=== PATIENT | female | born 1995 | race Caucasian/White ===

== ENCOUNTER 2021-06-07 09:27 | Emergency (ER) | payer BC ==
[2021-06-07] MEDS ORDERED: TORAdol 30 mg Injection IM ONE (09:53)
[2021-06-07] MEDS ORDERED: TORAdol 30 mg Injection ONE (09:54)
--- NOTE | 2021-06-07 10:11 | ERPHSYRPT ---
- History of Present Illness Historian: patient, other (Mother) Exam Limitations: no limitations Patient Subjective Stated Complaint: Patient c/o lower left sided back pain that radiates into left flank to left lower quad. Rates as 8/10. States ambulating has made the pain the worst so far. Triage Nursing Assessment: A & O x 3. Able to voice wants needs. Skin clammy. Writhing in pain. Clutching at left side. Rocking back and forth. Physician History: 25 yo wf w L flank pain radiating to LLQ since 8AM. Pt is 9/10 and sharp. It is accompanied by N/V, and she has mild dysuria wo hematuria/frequency/fever. is denied. Timing/Duration: other (8:00AM) Activities at Onset: sleep Quality: sharpness, stabbing Abdominal Pain Onset Location: flank Pain Radiation: LLQ Severity of Pain-Max: severe Severity of Pain-Current: severe Modifying Factors: Worsens With: analgesics, antacids, breathing, coughing, defecating, eating, exercise, lying down, movement, palpation, rest, urinating, vomiting, position, walking Associated Symptoms: back, nausea, vomiting Previous symptoms: no prior history Allergies/Adverse Reactions: NKA Allergy (Verified 06/07/21 10:08) Home Medications: Atorvastatin Calcium [Lipitor 40Mg] 40 mg PO DAILY 06/07/21 [History] Ethynodiol D-Ethinyl Estradiol [Kelnor 1-50 Tablet] 1 tab PO DAILY 06/07/21 [His tory] Labetalol HCl 100 mg [Trandate 100 MG] 100 mg PO BID 06/07/21 [History] Immunizations Up to Date: Yes Travel Risk - International Travel Have you traveled outside of the country in past 3 weeks: No - Coronavirus Screening Are you exhibiting any of the following symptoms?: No - Vaccine Status Have you recieved a Covid-19 vaccination: No - Review of Systems Constitutional: No Symptoms Eyes: No Symptoms Ears, Nose, & Throat: No Symptoms Respiratory: No Symptoms Cardiac: No Symptoms Abdominal/Gastrointestinal: No Symptoms, Nausea, Vomiting Genitourinary Symptoms: No Symptoms, Dysuria Musculoskeletal: No Symptoms Skin: No Symptoms Neurological: No Symptoms Psychological: No Symptoms Endocrine: No Symptoms Hematologic/Lymphatic: No Symptoms Immunological/Allergic: No Symptoms - Past Medical History Pertinent Past Medical History: Yes Neurological History: No Pertinent History ENT History: No Pertinent History Cardiac History: High Cholesterol, Hypertension Respiratory History: No Pertinent History Endocrine Medical History: No Pertinent History Musculoskeletal History: No Pertinent History GI Medical History: No Pertinent History History: No Pertinent History Psycho-Social History: No Pertinent History Female Reproductive Disorders: No Pertinent History - Past Surgical History Past Surgical History: No - Social History Smoking Status: Never smoker Exposure to second hand smoke: No Drug Use: none Significant Family History: no pertinent family hx - Female History Hx Last Menstrual Period: 05/10/21 Hx Now: No - Nursing Vital Signs Nursing Vital Signs: Initial Vital Signs Temperature 98.6 F 06/07/21 10:11 Pulse Rate 94 H 06/07/21 10:11 Respiratory Rate 16 06/07/21 10:11 Blood Pressure 148/79 06/07/21 10:11 O2 Sat by Pulse Oximetry 98 06/07/21 10:11 Pain Scale Pain Intensity 7 Hypertensive - Physical Exam General Appearance: no apparent distress (In pain) Eye Exam: PERRL/EOMI, eyes nml inspection Ears, Nose, Throat Exam: normal ENT inspection, TMs normal, pharynx normal, moist mucous membranes Neck Exam: normal inspection, non-tender, supple, full range of motion, No meningismus, No mass, No Brudzinski, No Kernig's Respiratory Exam: normal breath sounds, lungs clear, airway intact Cardiovascular Exam: regular rate/rhythm, normal heart sounds, normal peripheral pulses, capillary refill <2 sec, No murmur Gastrointestinal/Abdomen Exam: soft, tenderness (Mild RLQ wo guarding or rebo und) Back Exam: CVA tenderness (Mild L) Extremity Exam: normal inspection, normal range of motion Neurologic Exam: alert, oriented x 3, cooperative, 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, normal mood/affect, nml cerebellar function, nml station & gait, sensation nml, No motor deficits, No sensory deficit Skin Exam: normal color, warm, dry, No rash Lymphatic Exam: No adenopathy - Course Nursing assessment & vital signs reviewed: Yes - CT Exams Abdomen/Pelvis CT Interpretation: Discussed w/radiologist (2-3mm L distal ureteral stone) Ordered Tests: Active Orders 24 hr Category Date Time Status ABDOMEN AND PELVIS W/0 CONTRAS [CT] Stat Exams 06/07/21 11:20 Completed HCG,QUALITATIVE URINE Stat Lab 06/07/21 09:46 Completed UA W/RFX CULTURE Stat Lab 06/07/21 Completed Medication Summary Discontinued Medications Generic Name Dose Route Start Last Admin Trade Name Nette PRN Reason Stop Dose Admin Hydrocodone Bitart/Acetaminophen 1 tablet 06/07/21 11:24 06/07/21 11:28 Hydrocodone/Acetamin 10-325 Mg Tablet PO 06/07/21 11:25 Not Given STAT ONE Hydrocodone Bitart/Acetaminophen 1 tablet 06/07/21 12:10 06/07/21 12:14 Hydrocodone/Acetamin 10-325 Mg Tablet PO 06/07/21 12:11 1 tablet STAT ONE Administration Ketorolac Tromethamine 60 mg 06/07/21 09:53 06/07/21 09:56 Ketorolac Tromethamine 30 Mg/Ml Inj IM 06/07/21 09:54 60 mg STAT ONE Administration Ketorolac Tromethamine Confirm 06/07/21 09:54 Ketorolac Tromethamine 30 Mg/Ml Inj Administered 06/07/21 09:55 Dose 60 mg .ROUTE .STK-MED ONE Lab/Rad Data: Laboratory Results 06/07/21 06/07/21 Range/Units Unknown 09:46 Urinalys Dipstick Clnc MAIN LAB Urine Color YELLOW (YELLOW) Urine Appearance CLEAR (CLEAR) Urine pH 6.0 (5-6) Ur Specific [place] 1.024 (1.005-1.025) POC Urine Protein Conf NEGATIVE (Negative) Urine Ketones NEGATIVE (NEGATIVE) Urine Nitrite NEGATIVE (NEGATIVE) Urine Bilirubin NEGATIVE (NEGATIVE) Urine Urobilinogen 0.2 (0-1) mg/dL Urine Leukocytes SMALL (NEGATIVE) Urine WBC (Auto) 3-5 (0-5) /HPF Urine RBC (Auto) 0-2 (0-2) /HPF U Epithel Cells (Auto) RARE (FEW) /HPF Urine Bacteria (Auto) FEW (NEGATIVE) /HPF Urine RBC TRACE-INTACT (0-5) Meek/ul Urine Mucus (Auto) SLIGHT (NEGATIVE) /HPF Ur Culture Indicated? NO Urine Glucose NEGATIVE (NEGATIVE) mg/dL Urine HCG, Qual NEGATIVE (Negative) - Progress Progress: improved Progress Note: 06/07/21 12:06 60mg IM Toradol w improvement 06/07/21 17:32 Norco10 po x1 before discharge Counseled pt/family regarding: lab results, diagnosis, need for follow-up, rad results - Departure Departure Disposition: Home Clinical Impression: Ureterolithiasis Condition: Stable Critical Care Time: No Referrals: BRITTA VELAZQUEZ DO [Primary Care Provider] - Follow up/PCP as directed Instructions: Kidney Stones (DC) Additional Instructions: Strain all urine Pain meds as needed Fluids Start Macrobid Return to ER for increasing pain or temperature greater than 100.5 Follow up with your family Prescriptions: Hydrocodone/Acetaminophen [Hydrocodone-Acetamin 5-325 mg] 1 tab PO Q4HPRN PRN #7 tablet MDD 4 PRN Reason: Pain Nitrofurantoin Monohyd/M-Cryst [Macrobid 100 mg Capsule] 100 mg PO BID #10
[2021-06-07 10:40] LABS: Appearance CLEAR (CLEAR); Bilirubin NEGATIVE (NEGATIVE); Glucose NEGATIVE (NEGATIVE); Ketones NEGATIVE (NEGATIVE); Specific Gravity 1.024 (1.005-1.025)
[2021-06-07 10:41] LABS: Dipstick done @ ? MAIN LAB; Nitrite NEGATIVE (NEGATIVE); Protein,Urine Dip NEGATIVE (Negative); RBC TRACE-INTACT Ery/ul (0-5); Urobilinogen 0.2 mg/dL (0-1)
[2021-06-07 10:44] LABS: Bacteria FEW /HPF (NEGATIVE); Epithelial Cells RARE /HPF (FEW); Mucus SLIGHT /HPF (NEGATIVE); RBC 0-2 /HPF (0-2)
[2021-06-07 11:15] LABS: Urine Cultured Indicated? NO
[2021-06-07] MEDS ORDERED: HYDROCODONE-ACETAMIN 10-325 MG PO ONE ×2 (11:24→12:10)
--- NOTE | 2021-06-07 11:47 | XRAY ---
Indication: Left flank pain. Multiple contiguous axial images obtained through the abdomen and pelvis without contrast using renal stone protocol. Comparison: None Lung bases clear. Heart not enlarged. 2-3 mm distal left ureter calculus just proximal to UVJ. Proximal left ureter is slightly prominent along with mild hydronephrosis consistent with partial obstructive uropathy. No free fluid/air. Noncontrasted stomach and bowel loops appear nonobstructed with normal appendix. Remaining liver, gallbladder, pancreas, spleen, adrenal glands, kidneys, ureters, bladder, uterus, and aorta are unremarkable for noncontrast exam. Osseous structures intact. No ventral or inguinal hernias. Impression: 2-3 mm distal left ureteral calculus producing partial obstruction.
[2021-06-07 12:19] VITALS: BP 130/83; PULSE 68; O2SAT 97
== END 2021-06-07 12:25 | disposition home or self-care (01) ==
LOC: ED 09:27
DX: N20.1 Calculus of ureter (principal); R10.32 Left lower quadrant pain; R11.2 Nausea with vomiting, unspecified; R30.0 Dysuria; E78.5 Hyperlipidemia, unspecified; I10 Essential (primary) hypertension; Z79.891 Long term (current) use of opiate analgesic; Z79.899 Other long term (current) drug therapy
CPT/HCPCS: 74176; 81015; 84703; 96372; 99284; J1885; A9270-GY

== ENCOUNTER 2021-06-08 12:02 | Emergency (ER) | payer BC ==
[2021-06-08] MEDS ORDERED: TORAdol 30 mg Injection IV ONE ×2 (12:12→14:06)
[2021-06-08] MEDS ORDERED: Zofran 4 MG/2 ML VIAL IV ONE (12:13)
[2021-06-08] MEDS ORDERED: Sodium Chloride 0.9% 1000 ML 1,000 ML IV STA (12:15)
[2021-06-08] MEDS ORDERED: Zofran 4 MG/2 ML VIAL ONE (12:22)
[2021-06-08] MEDS ORDERED: TORAdol 30 mg Injection ONE ×2 (12:22→14:09)
[2021-06-08] MEDS ORDERED: Sodium Chloride 0.9% 1000 ML 1,000 ML ONE (12:22)
[2021-06-08 12:38] LABS: Absolute Neutrophil Ct (ANC) 9.07 (1.4-6.9); Basophil (Absolute #) 0.03 (0-0.4); Eosinophil % 0.2 % (0.00-5.0); Eosinophil (Absolute #) 0.02 (0-0.5); Hematocrit 40.6 % (35-47); Hemoglobin 13.9 gm/dl (12.0-16.0); Lymphocyte (Absolute #) 1.64 (1.0-4.6); Lymphocytes % 13.6 % (24.0-44.0); Mean Cell Volume 90.2 fl (78-100); Mean Corpuscular Hemoglobin 30.9 pg (26-32); Mean Corpuscular Hgb Concent. 34.2 g/dl (32-36); Mean Platelet Volume 8.9 fl (7.5-11.0); Monocyte (Absolute #) 1.26 (0.0-1.3); Monocytes % 10.5 % (0.0-12.0); Neutrophil % 75.5 % (36.0-66.0); Platelet Count 379 K/mm3 (150-450); Red Cell Distribution Width 12.8 % (11.5-14.0)
[2021-06-08 12:41] LABS: ALBUMIN 4.4 g/dL (3.5-5.0); ALKALINE PHOSPHATASE 61 U/L (38-126); ANION GAP 13.3 MEQ/L (5-15); BLOOD UREA NITROGEN 14 mg/dL (7-17); CHLORIDE 102 mmol/L (98-107); Calcium 9.1 mg/dL (8.4-10.2); Carbon Dioxide 23 mmol/L (22-30); Creatinine 1 0.93 mg/dL (0.52-1.04); EST GLOMERULAR FILTRATION RATE > 60.0 ML/MIN; Glucose 100 mg/dL (74-106); Potassium 3.9 mmol/L (3.5-5.1); SGOT/AST 34 U/L (14-36); SGPT/ALT 16 U/L (0-35); SODIUM 134 mmol/L (137-145); Total Protein 7.4 g/dL (6.3-8.2)
--- NOTE | 2021-06-08 13:23 | ERPHSYRPT ---
- History of Present Illness Time Seen by Provider: 06/08/21 12:15 Source: patient Exam Limitations: no limitations Patient Subjective Stated Complaint: pt here for return visit for flank pain and nausea and vomiting, she was dx with kidney stone and sent home on meds Triage Nursing Assessment: pt alert, resp easy, skin w/d/p. abd soft Physician History: Patient is a 25-year-old female who was seen in the ER yesterday with left flank pain had a CT scan which did show a distal left ureteral stone. She has been unable to retain any medicines. She had some Zofran called in but was having so much trouble she came had to the ER. Timing/Duration: day(s) (2) Activites at Onset: none Quality: stabbing, throbbing Onset Location: left flank Pain Radiation: LLQ, suprapubic, vaginal Severity of Pain-Max: severe Severity of Pain-Current: severe Sexual intercourse history: non-contributory Modifying Factors: Improves With: nothing Associated Symptoms: abdominal pain, nausea, vomiting Allergies/Adverse Reactions: NKA Allergy (Verified 06/08/21 12:07) Home Medications: Atorvastatin Calcium [Lipitor 40Mg] 40 mg PO DAILY 06/07/21 [History] Ethynodiol D-Ethinyl Estradiol [Kelnor 1-50 Tablet] 1 tab PO DAILY 06/07/21 [History] Labetalol HCl 100 mg [Trandate 100 MG] 100 mg PO BID 06/07/21 [History] Hx Tetanus, Diphtheria Vaccination/Date Given: No Hx Influenza Vaccination/Date Given: No Hx Pneumococcal Vaccination/Date Given: No Travel Risk - International Travel Have you traveled outside of the country in past 3 weeks: No - Coronavirus Screening Are you exhibiting any of the following symptoms?: No - Vaccine Status Have you recieved a Covid-19 vaccination: No - Review of Systems Constitutional: No Fever, No Chills Eyes: No Symptoms Ears, Nose, & Throat: No Symptoms Respiratory: No Cough, No Dyspnea Cardiac: No Chest Pain, No Edema, No Syncope Abdominal/Gastrointestinal: No Abdominal Pain, No Nausea, No Vomiting, No Diarrhea Genitourinary Symptoms: Flank Pain, No Dysuria Musculoskeletal: No Back Pain, No Neck Pain Skin: No Rash Neurological: No Dizziness, No Focal Weakness, No Sensory Changes Psychological: No Symptoms Endocrine: No Symptoms All Other Systems: Reviewed and Negative - Past Medical History Pertinent Past Medical History: Yes Neurological History: No Pertinent History ENT History: No Pertinent History Cardiac History: High Cholesterol, Hypertension Respiratory History: No Pertinent History Endocrine Medical History: No Pertinent History Musculoskeletal History: No Pertinent History GI Medical History: No Pertinent History History: No Pertinent History Psycho-Social History: No Pertinent History Female Reproductive Disorders: No Pertinent History - Past Surgical History Past Surgical History: No - Social History Smoking Status: Never smoker Exposure to second hand smoke: No Drug Use: none Patient Lives Alone: No Significant Family History: no pertinent family hx - Female History Hx Last Menstrual Period: 2 weeks ago Hx Now: No - Nursing Vital Signs Nursing Vital Signs: Initial Vital Signs Temperature 97.2 F 06/08/21 12:07 Pulse Rate 91 H 06/08/21 12:07 Respiratory Rate 18 06/08/21 12:07 Blood Pressure 132/77 06/08/21 12:07 O2 Sat by Pulse Oximetry 96 06/08/21 12:07 Pain Scale Pain Intensity 4 - Physical Exam General Appearance: moderate distress, alert Eye Exam: PERRL/EOMI, eyes nml inspection Ears, Nose, Throat Exam: normal ENT inspection, TMs normal, pharynx normal, moist mucous membranes Neck Exam: normal inspection, non-tender, supple, full range of motion Respiratory Exam: normal breath sounds, lungs clear, No respiratory distress Cardiovascular Exam: regular rate/rhythm, normal heart sounds, normal peripheral pulses Gastrointestinal/Abdomen Exam: soft, No tenderness, No mass Back Exam: normal inspection, normal range of motion, CVA tenderness, No vertebral tenderness Extremity Exam: normal inspection, normal range of motion, pelvis stable Neurologic Exam: alert, oriented x 3, cooperative, 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, normal mood/affect, sensation nml, No motor deficits Skin Exam: normal color, warm, dry Lymphatic Exam: No adenopathy SpO2: 96 - Course Nursing assessment & vital signs reviewed: Yes - Radiology Exams Abdomen X-ray Interpretation: Interpreted by me, Other (KUB shows small ureteral calculus in the distal left ureter near if not at the UPJ) Ordered Tests: Active Orders 24 hr Category Date Time Status KUB Stat Exams 06/08/21 12:14 Taken CBC W DIFF Stat Lab 06/08/21 12:29 Completed CMP Stat Lab 06/08/21 12:29 Completed CULTURE,URINE Stat Lab 06/08/21 12:15 Received UA W/RFX CULTURE Stat Lab 06/08/21 12:15 Completed Medication Summary Discontinued Medications Generic Name Dose Route Start Last Admin Trade Name Nette PRN Reason Stop Dose Admin Hydromorphone HCl 0.5 mg 06/08/21 14:07 06/08/21 14:15 Hydromorphone 1 Mg/1ml Inj 1 Mg/Ml Syringe IV 06/08/21 14:08 Not Given STAT ONE Hydromorphone HCl Confirm 06/08/21 14:10 Hydromorphone 1 Mg/1ml Inj 1 Mg/Ml Syringe Administered 06/08/21 14:11 Dose 1 mg .ROUTE .STK-MED ONE Sodium Chloride 1,000 mls @ 999 mls/hr 06/08/21 12:15 06/08/21 13:26 Sodium Chloride 0.9% 1000 Ml IV 06/08/21 13:15 Infused .Q1H1M STA Infusion Sodium Chloride Confirm 06/08/21 12:22 Sodium Chloride 0.9% 1000 Ml Administered 06/08/21 12:23 Dose 1,000 mls @ ud .ROUTE .STK-MED ONE Ketorolac Tromethamine 30 mg 06/08/21 12:12 06/08/21 12:23 Ketorolac Tromethamine 30 Mg/Ml Inj IV 06/08/21 12:13 30 mg STAT ONE Administration Ketorolac Tromethamine Confirm 06/08/21 12:22 Ketorolac Tromethamine 30 Mg/Ml Inj Administered 06/08/21 12:23 Dose 30 mg .ROUTE .STK-MED ONE Ketorolac Tromethamine 30 mg 06/08/21 14:06 06/08/21 14:11 Ketorolac Tromethamine 30 Mg/Ml Inj IV 06/08/21 14:07 30 mg STAT ONE Administration Ketorolac Tromethamine Confirm 06/08/21 14:09 Ketorolac Tromethamine 30 Mg/Ml Inj Administered 06/08/21 14:10 Dose 30 mg .ROUTE .STK-MED ONE Ondansetron HCl 4 mg 06/08/21 12:13 06/08/21 12:24 Ondansetron Hcl 4 Mg/2 Ml Vial IV 06/08/21 12:14 4 mg STAT ONE Administration Ondansetron HCl Confirm 06/08/21 12:22 Ondansetron Hcl 4 Mg/2 Ml Vial Administered 06/08/21 12:23 Dose 4 mg .ROUTE .STK-MED ONE Tamsulosin HCl Confirm 06/08/21 14:04 Tamsulosin Hcl 0.4 Mg Cap Administered 06/08/21 14:05 Dose 0.4 mg .ROUTE .STK-MED ONE Tamsulosin HCl 0.4 mg 06/08/21 14:04 06/08/21 14:11 Tamsulosin Hcl 0.4 Mg Cap PO 06/08/21 14:05 0.4 mg DAILY STA Administration Lab/Rad Data: Laboratory Result Diagrams 06/08/21 12:29 06/08/21 12:29 Laboratory Results 06/08/21 06/08/21 06/08/21 Range/Units 12:29 12:29 12:15 WBC 12.0 H (4.0-10.5) K/mm3 RBC 4.50 (4.1-5.4) M/mm3 Hgb 13.9 (12.0-16.0) gm/dl Hct 40.6 (35-47) % MCV 90.2 (78-100) fl MCH 30.9 (26-32) pg MCHC 34.2 (32-36) g/dl RDW 12.8 (11.5-14.0) % Plt Count 379 (150-450) K/mm3 MPV 8.9 (7.5-11.0) fl Gran % 75.5 H (36.0-66.0) % Eos # (Auto) 0.02 (0-0.5) Absolute Lymphs (auto) 1.64 (1.0-4.6) Absolute Monos (auto) 1.26 (0.0-1.3) Lymphocytes % 13.6 L (24.0-44.0) % Monocytes % 10.5 (0.0-12.0) % Eosinophils % 0.2 (0.00-5.0) % Basophils % 0.2 (0.0-0.4) % Absolute Granulocytes 9.07 H (1.4-6.9) Basophils # 0.03 (0-0.4) Sodium 134 L (137-145) mmol/L Potassium 3.9 (3.5-5.1) mmol/L Chloride 102 (98-107) mmol/L Carbon Dioxide 23 (22-30) mmol/L Anion Gap 13.3 (5-15) MEQ/L BUN 14 (7-17) mg/dL Creatinine 0.93 (0.52-1.04) mg/dL Estimated GFR > 60.0 ML/MIN Glucose 100 (74-106) mg/dL Calcium 9.1 (8.4-10.2) mg/dL Total Bilirubin 0.70 (0.2-1.3) mg/dL AST 34 (14-36) U/L ALT 16 (0-35) U/L Alkaline Phosphatase 61 (38-126) U/L Serum Total Protein 7.4 (6.3-8.2) g/dL Albumin 4.4 (3.5-5.0) g/dL Urinalys Dipstick Clnc MAIN LAB Urine Color YELLOW (YELLOW) Urine Appearance CLEAR (CLEAR) Urine pH 5.5 (5-6) Ur Specific [place] <=1.005 (1.005-1.025) POC Urine Protein Conf NEGATIVE (Negative) Urine Ketones NEGATIVE (NEGATIVE) Urine Nitrite NEGATIVE (NEGATIVE) Urine Bilirubin NEGATIVE (NEGATIVE) Urine Urobilinogen 0.2 (0-1) mg/dL Urine Leukocytes SMALL (NEGATIVE) Urine WBC (Auto) 0-2 (0-5) /HPF Urine RBC (Auto) NONE (0-2) /HPF U Epithel Cells (Auto) NONE (FEW) /HPF Urine Bacteria (Auto) FEW (NEGATIVE) /HPF Urine RBC TRACE-INTACT (0-5) Meek/ul Ur Culture Indicated? YES Urine Glucose NEGATIVE (NEGATIVE) mg/dL - Progress Progress: improved Air Movement: good Blood Culture(s) Obtained: No Antibiotics given: No - Departure Departure Disposition: Home Clinical Impression: Left ureteral stone Condition: Stable Critical Care Time: No Referrals: BRITTA VELAZQUEZ DO [Primary Care Provider] - Follow up/PCP as directed Instructions: Kidney Stones (DC) Prescriptions: Ondansetron ODT 4 MG [Zofran Odt 4 mg] 4 mg PO Q6H PRN PRN #10 tablet PRN Reason: Vomiting Tamsulosin HCl 0.4 mg [Flomax 0.4 MG] 0.4 mg PO DAILY 5 Days #5 cap Diclofenac Sodium 50 mg [Voltaren 50 mg] 50 mg PO Q6H 5 Days #15 cap
[2021-06-08 13:40] LABS: Appearance CLEAR (CLEAR); Bilirubin NEGATIVE (NEGATIVE); Glucose NEGATIVE (NEGATIVE); Ketones NEGATIVE (NEGATIVE)
[2021-06-08 13:41] LABS: Dipstick done @ ? MAIN LAB; Nitrite NEGATIVE (NEGATIVE); Ph 5.5 (5-6); Protein,Urine Dip NEGATIVE (Negative); RBC TRACE-INTACT Ery/ul (0-5); Specific Gravity <=1.005 (1.005-1.025); Urobilinogen 0.2 mg/dL (0-1)
[2021-06-08 13:55] LABS: Bacteria FEW /HPF (NEGATIVE); Urine Cultured Indicated? YES; WBC 0-2 /HPF (0-5)
[2021-06-08] MEDS ORDERED: Flomax 0.4 MG PO STA (14:04)
[2021-06-08] MEDS ORDERED: Flomax 0.4 MG ONE (14:04)
[2021-06-08] MEDS ORDERED: Hydromorphone 1 mg/ml Injection IV ONE (14:07)
[2021-06-08] MEDS ORDERED: Hydromorphone 1 mg/ml Injection ONE (14:10)
[2021-06-08 14:20] VITALS: BP 134/72; PULSE 63
[2021-06-08 14:34] VITALS: O2SAT 96
--- NOTE | 2021-06-08 19:41 | XRAY ---
Indication: Left ureteral calculus on CT one day earlier. Worsening pain and vomiting. Comparison: None KUB demonstrates punctate left pelvic ossification presumed CT proven UVJ calculus. Bowel gas pattern nonobstructed. Solid organs and osseous structures unremarkable. Comment: Preliminary interpretation made by [facility]. No critical discrepancy.
== END 2021-06-08 15:01 | disposition home or self-care (01) ==
LOC: ED 12:02
DX: N20.1 Calculus of ureter (principal); R10.32 Left lower quadrant pain; R10.2 Pelvic and perineal pain; R11.2 Nausea with vomiting, unspecified; E78.5 Hyperlipidemia, unspecified; I10 Essential (primary) hypertension; Z79.899 Other long term (current) drug therapy
CPT/HCPCS: 36415; 74018; 80053; 81015; 85025; 87086; 96360; 96361; 96374; 96375; 96376; 99284; J1170; J1885; J2405; A9270-GY

== ENCOUNTER 2023-01-28 07:47 | Inpatient (IN) | payer BC ==
[~2023-01-28 07:47] MED LIST: PITOCIN 30 UNITS/ LR 500 ML 30 UNITS/500 ML PLAST..BAG IV SCH
[2023-01-28] MEDS ORDERED: TYLENOL EXTRA STRENGTH 500 MG PO PRN (15:00)
[2023-01-28] MEDS ORDERED: CEFAZOLIN 2 GM-D5W BAG** 2 GM/50 ML ML IV ONE (15:00)
[2023-01-28 15:35] LABS: Absolute Neutrophil Ct (ANC) 7.94 x10^3/uL (1.4-6.9); BASOPHIL % 0.4 % (0.0-0.4); Basophil (Absolute #) 0.04 x10^3/uL (0-0.4); Eosinophil % 0.2 % (0.00-5.0); Eosinophil (Absolute #) 0.02 x10^3/uL (0-0.5); Hematocrit 36.3 % (35-47); Hemoglobin 12.2 g/dL (12.0-16.0); IMMATURE GRAN # 0.05 x10^3u/L (0.00-0.03); IMMATURE GRAN % 0.5 % (0.00-0.4); Lymphocyte (Absolute #) 1.72 x10^3/uL (1.0-4.6); Lymphocytes % 16.4 % (24.0-44.0); Mean Cell Volume 87.1 fL (78-100); Mean Corpuscular Hemoglobin 29.3 pg (26-32); Mean Corpuscular Hgb Concent. 33.6 g/dL (32-36); Monocyte (Absolute #) 0.72 x10^3/uL (0.0-1.3); Monocytes % 6.9 % (0.0-12.0); Neutrophil % 75.6 % (36.0-66.0); Platelet Count 398 x10^3/uL (150-450); Red Blood Count 4.17 x10^6/uL (4.1-5.4); Red Cell Distribution Width 13.7 % (11.5-14.0); White Blood Count 10.5 x10^3/uL (4.0-10.5)
[2023-01-28] MEDS: CYTOTEC PO SCH ×4 (15:37→21:38)
[2023-01-28 15:53] LABS: Amphetamine,Urine NEGATIVE (NEGATIVE); Barbiturate,Urine NEGATIVE (NEGATIVE); Benzodiazepine,Urine NEGATIVE (NEGATIVE); Cocaine,Urine NEGATIVE (NEGATIVE); Methadone,Urine NEGATIVE (NEGATIVE); Opiate,Urine NEGATIVE (NEGATIVE); PCP,Urine NEGATIVE (NEGATIVE); THC,Urine NEGATIVE (NEGATIVE)
[2023-01-28 16:07] LABS: ABO TYPING O; Antibody Screen NEGATIVE (NEGATIVE); RH TYPING POSITIVE
[2023-01-28] MEDS: Trandate 100 MG PO SCH (21:40)
[2023-01-28] MEDS ORDERED: STADOL 2 MG IV PRN (21:43)
[2023-01-28] MEDS: Lactated Ringers 1,000 ML IV SCH (23:40)
[2023-01-29] MEDS ORDERED: OMNIPEN 2 GM*** 2 G in Sodium Chloride 100ML MINI-BAG PLUS 100 ML IV ONE ×2
[2023-01-29] MEDS: Zofran 4 MG/2 ML VIAL IV PRN ×2 (00:04→19:57)
[2023-01-29] MEDS: CYTOTEC PO SCH ×3 (00:40→04:42)
[2023-01-29] MEDS: OMNIPEN 1 GM*** 1 GM in Sodium Chloride 100ML MINI-BAG PLUS 100 ML IV SCH ×3 (03:51→12:02)
[2023-01-29] MEDS: Lactated Ringers 1,000 ML IV ONE ×3 (05:46→16:40)
[2023-01-29] MEDS ORDERED: PITOCIN 30 UNITS/ LR 500 ML 30 UNITS/500 ML PLAST..BAG IV SCH ×2 (06:00)
[2023-01-29] MEDS ORDERED: FENTANYL 2 MCG-BUPIV 0.125%-NS 250 ML Epidur 250 ML EPIDURAL SCH (06:00)
[2023-01-29] MEDS ORDERED: Ephedrine Sulfate 50 MG/ML IV PRN (06:00)
[2023-01-29] MEDS: Lactated Ringers 1,000 ML IV SCH ×2 (06:33→16:40)
[2023-01-29] MEDS: Trandate 100 MG PO SCH ×2 (09:57→22:22)
[2023-01-29] MEDS ORDERED: CORTISONE 1% CREAM TP PRN (10:00)
[2023-01-29] MEDS ORDERED: Dermoplast Spray TP PRN (10:00)
[2023-01-29] MEDS ORDERED: LANSINOH 40 GM TOP PRN (10:00)
[2023-01-29] MEDS ORDERED: TUCKS TP PRN (10:00)
[2023-01-29] MEDS ORDERED: Dulcolax 10 MG SUPP PR PRN (10:00)
[2023-01-29] MEDS ORDERED: Adacel Vial IM ONE (10:00)
[2023-01-29] MEDS ORDERED: SOD CITRATE-CITRIC ACID SOLN ONE (16:07)
[2023-01-29] MEDS ORDERED: Pepcid 20 MG VIAL IV ONE (16:07)
[2023-01-29] MEDS ORDERED: Reglan 10 MG/2 ML ONE (16:07)
[2023-01-29] MEDS ORDERED: Zithromax 500 MG/ 250 ML NaCl Premix 500 MG/250 ML IVPB IV STA (16:08)
[2023-01-29] MEDS ORDERED: CEFAZOLIN 2 GM-D5W BAG** 2 GM/50 ML ML IV STA (16:09)
[2023-01-29] MEDS ORDERED: Reglan 10 MG/2 ML IV SCH (16:15)
[2023-01-29] MEDS ORDERED: Pepcid 20 MG VIAL IV SCH (16:15)
[2023-01-29] MEDS ORDERED: SOD CITRATE-CITRIC ACID SOLN PO SCH (16:15)
[2023-01-29] MEDS ORDERED: Zithromax 500 MG/ 250 ML NaCl Premix 500 MG/250 ML IVPB IV SCH (16:30)
[2023-01-29] MEDS ORDERED: CEFAZOLIN 2 GM-D5W BAG** 2 GM/50 ML ML IV SCH (16:30)
[2023-01-29 16:38] LABS: INR 0.87 (0.8-3.0); PROTIME 9.6 SECONDS (9.4-12.5); PTT 24.7 SECONDS (25.1-36.5)
[2023-01-29] MEDS ORDERED: PATIENT OWN MEDICATION PO SCH (17:00)
[2023-01-29] MEDS ORDERED: Pitocin 10 UNITS/ML ONE ×2 (17:03→17:49)
[2023-01-29] MEDS ORDERED: Astramorph-Pf 5 MG/10 ML ONE (17:03)
[2023-01-29] MEDS ORDERED: XYLOCAINE 2%/Epi 1:200000 20ML VIAL MPF ONE (17:03)
[2023-01-29] MEDS ORDERED: DEMEROL 50 MG IV PRN ×2 (17:10→17:35)
[2023-01-29] MEDS ORDERED: HOLD NARCOTIC ANALGESICS AND SEDATIVES X24 HR MC PRN ×2 (17:10→17:35)
[2023-01-29] MEDS ORDERED: Versed 2 MG/2 ML Injection ONE (17:10)
[2023-01-29] MEDS ORDERED: MORPHINE SULFATE 2 MG INJ IV PRN (17:10)
[2023-01-29] MEDS ORDERED: Nubain 10 MG/ML IV PRN ×2 (17:10→17:35)
[2023-01-29] MEDS ORDERED: BENADRYL 50 MG/ML IV PRN ×2 (17:10→17:35)
[2023-01-29] MEDS ORDERED: Zofran 4 MG/2 ML VIAL IV PRN (17:10)
[2023-01-29] MEDS ORDERED: CLARITIN 10 MG PO PRN ×2 (17:10→17:35)
[2023-01-29] MEDS ORDERED: Narcan 0.4 MG/ML IV PRN (17:10)
[2023-01-29] MEDS ORDERED: Epinephrine Preservative Free 1 MG/ML ONE (17:24)
[2023-01-29] MEDS ORDERED: Naropin 0.5% 30 ML VIAL ONE (17:24)
[2023-01-29] MEDS ORDERED: DEMEROL 50 MG ONE (17:33)
[2023-01-29] MEDS ORDERED: PERCOCET TABLET 5/325MG PO PRN (17:35)
[2023-01-30] MEDS: MOTRIN 400 MG PO PRN ×4 (00:10→22:03)
[2023-01-30] MEDS: Dextrose 5%-Lr IV Solution 1000 ML 1,000 ML IV SCH ×2 (02:25→03:03)
[2023-01-30] MEDS: CEFAZOLIN 2 GM-D5W BAG** 2 GM/50 ML ML IV SCH ×2 (02:28→10:24)
[2023-01-30] MEDS: Docusate Sodium 100 MG PO SCH ×4 (02:29→22:03)
[2023-01-30] MEDS: FERREX 150 PO SCH ×2 (02:29→10:23)
[2023-01-30] MEDS: Lactated Ringers 1,000 ML IV SCH ×2 (02:42→03:01)
[2023-01-30] MEDS: OMNIPEN 1 GM*** 1 GM in Sodium Chloride 100ML MINI-BAG PLUS 100 ML IV SCH ×3 (03:02→03:04)
--- NOTE | 2023-01-30 07:33 | PCM.NOTE ---
Date and Time: 01/30/23730 Subjective Assessment: pod 1 sp csection pt resting in bed and doing well. able to ambulate and tolerate diet vss afebrile abd; soft incision c/d/intact uterus; firm lochia; mild a/p sp csection pod 1 anticipate discharge tomorrow cpm OBJECTIVE DATA Vital Signs: Vital Signs - 24 hr Temp Pulse Resp BP BP Pulse Ox 01/30/23 06:54 97 01/30/23 05:52 97 01/30/23 05:00 98 01/30/23 04:00 97 01/30/23 03:10 87 20 121/68 87 L 01/30/23 03:00 96 01/30/23 02:00 96 01/30/23 01:00 95 01/30/23 00:15 99.6 F 92 H 20 148/82 97 01/30/23 00:00 97 01/29/23 23:00 98 01/29/23 22:00 98 01/29/23 21:55 98.5 F 117 H 22 120/58 98 01/29/23 21:00 97 01/29/23 20:20 98 H 20 121/68 96 01/29/23 20:00 96 01/29/23 19:45 98.7 F 92 H 20 122/65 96 01/29/23 19:15 98.1 F 106 H 18 135/80 95 01/29/23 19:00 97.8 F 108 H 20 115/76 95 01/29/23 18:45 97.4 F 102 H 18 118/57 95 01/29/23 18:30 97.4 F 110 H 18 119/57 95 01/29/23 16:45 103 H 20 01/29/23 16:30 103 H 20 136/64 98 01/29/23 16:22 101 H 20 131/73 96 01/29/23 16:15 127 H 20 131/73 98 01/29/23 16:00 91 H 20 98/50 97 01/29/23 15:45 92 H 20 98 01/29/23 15:30 97 H 20 121/71 98 01/29/23 15:15 101 H 20 96 01/29/23 15:00 97.5 F 98 H 20 98 01/29/23 14:45 97.5 F 98 H 20 124/71 98 01/29/23 14:30 97.5 F 80 20 116/57 97 01/29/23 14:15 97.5 F 77 20 115/55 01/29/23 14:00 97.5 F 86 20 122/60 01/29/23 13:45 97.5 F 81 20 118/57 95 01/29/23 13:30 97.5 F 90 20 131/77 95 01/29/23 13:15 97.5 F 80 20 133/62 95 01/29/23 13:00 97.5 F 88 20 122/58 96 01/29/23 12:45 97.5 F 86 20 113/56 96 01/29/23 12:30 97.5 F 86 20 113/55 96 01/29/23 12:15 97.5 F 80 18 120/56 95 01/29/23 12:00 97.5 F 80 18 104/51 96 01/29/23 11:45 85 18 109/57 97 01/29/23 11:30 86 18 117/58 97 01/29/23 11:15 88 18 104/52 97 01/29/23 11:00 106 H 18 109/53 97 01/29/23 10:42 86 18 118/63 01/29/23 10:30 88 18 121/62 01/29/23 10:15 99 H 18 120/76 01/29/23 10:00 94 H 18 115/61 01/29/23 09:45 79 18 117/58 01/29/23 09:30 86 18 120/58 01/29/23 09:15 97.5 F 92 H 18 121/66 98 01/29/23 09:00 97 H 18 121/59 97 01/29/23 08:45 89 18 123/67 94 L 01/29/23 08:30 94 H 18 125/66 96 01/29/23 08:15 98 H 18 112/59 96 01/29/23 08:00 98 H 18 133/72 98 01/29/23 07:45 102 H 18 117/64 98 Pain Assessment - Last Documented Pain Intensity [Lower] 3 Pain Intensity 0 Pain Scale Used 0-10 Pain Scale Intake and Output: Intake & Output 01/27/23 01/28/23 01/29/23 01/30/23 11:59 11:59 11:59 11:59 Intake Total 1255 5274 Output Total 40 4189 Balance 3035 1085 Weight 103.873 kg 103.873 kg Lab Results: Lab Results-Last 24 Hours 01/29/23 Range/Units 16:18 PT 9.6 (9.4-12.5) SECONDS INR 0.87 (0.8-3.0) APTT 24.7 L (25.1-36.5) SECONDS Assessment/Plan (1) S/P primary low transverse Current Visit: Yes Status: Acute Code(s): Z98.891 - HISTORY OF UTERINE SCAR FROM PREVIOUS SURGERY (2) Arrest of dilation, delivered, current hospitalization Current Visit: Yes Status: Acute Code(s): O62.1 - SECONDARY UTERINE INERTIA
[2023-01-30 07:48] LABS: Absolute Neutrophil Ct (ANC) 9.46 x10^3/uL (1.4-6.9); BASOPHIL % 0.3 % (0.0-0.4); Basophil (Absolute #) 0.04 x10^3/uL (0-0.4); Eosinophil (Absolute #) 0 x10^3/uL (0-0.5); Hemoglobin 9.7 g/dL (12.0-16.0); IMMATURE GRAN # 0.06 x10^3u/L (0.00-0.03); IMMATURE GRAN % 0.5 % (0.00-0.4); Lymphocyte (Absolute #) 1.81 x10^3/uL (1.0-4.6); Lymphocytes % 14.4 % (24.0-44.0); Mean Cell Volume 87.3 fL (78-100); Mean Corpuscular Hemoglobin 29.2 pg (26-32); Mean Corpuscular Hgb Concent. 33.4 g/dL (32-36); Mean Platelet Volume 8.8 fL (7.5-11.0); Monocyte (Absolute #) 1.21 x10^3/uL (0.0-1.3); Monocytes % 9.6 % (0.0-12.0); Neutrophil % 75.2 % (36.0-66.0); Platelet Count 320 x10^3/uL (150-450); Red Blood Count 3.32 x10^6/uL (4.1-5.4); Red Cell Distribution Width 14.1 % (11.5-14.0); White Blood Count 12.6 x10^3/uL (4.0-10.5)
--- NOTE | 2023-01-30 07:50 | OP ---
SURGERY DATE/TIME: 01/29/2023 1704 PREOPERATIVE DIAGNOSIS: Intrauterine at 39 weeks and 1 day gestation with arrest of descent and dilatation. POSTOPERATIVE DIAGNOSIS: Intrauterine at 39 weeks and 1 day gestation with arrest of descent and dilatation with nuchal cord x1with asynclitic presentation. PROCEDURE: Primary section, low flap transverse uterine incision, Pfannenstiel skin incision. SURGEON: Christophe Santiago D.O. SECURITY MESSENGER: Marlene Miller, surgical technicians. ANESTHESIA: Epidural. QUANTITATIVE BLOOD LOSS: 639 cc. COMPLICATIONS: None. INDICATIONS: The risks, benefits, indications and alternatives of the procedure were reviewed with the patient prior to procedure. The patient understood the risk of infection, bleeding, bowel injury, bladder injury, ureteral injury, pelvic infection and thromboembolic disorder associated with this surgery and desires to have this surgery as a possible means to alleviate her current medical condition. DESCRIPTION OF PROCEDURE AND FINDINGS: At this point the patient is taken to the operating room where her epidural anesthesia was found to be adequate. She was then prepared and draped in normal sterile fashion in the dorsal supine position with leftward tilt. A Pfannenstiel skin incision is made with a scalpel and carried through to the underlying layer of the fascia with a Bovie. The fascia was then incised in the midline and the incision extended laterally with Corbin scissors. The superior aspect of the fascial incision was then grasped Елена clamps elevated and the underlying rectus muscles dissected off bluntly. Attention is then turned to the inferior aspect of this incision which in similar fashion was grasped, tented up with Елена clamps and the rectus muscles dissected off bluntly. The rectus muscles were then at the midline and the peritoneum identified, tented up and entered sharply with Metzenbaum scissors. The peritoneal incision was then extended superiorly and inferiorly with good visualization of the bladder. At this point the Pascual retractor was placed into the incision for retraction. From this point an incision was made and extended along the bladder flap. At this point the vesicouterine peritoneum identified, grasped with pickups and entered sharply with Metzenbaum scissors. The incision was then extended laterally and bladder flap created digitally. At this point the lower uterine segment incised in transverse fashion with a scalpel. The uterine incision was then extended laterally with bandage scissors. At this point the infants head was delivered atraumatically. The nose and mouth were suctioned with bulb suction and the cord clamped and cut. The infant was handed off to the awaiting nurses. The placenta was then removed manually. The uterus exteriorized and cleared of all clots and debris. The uterine incision was repaired with 1-0 chromic in a running locked fashion. A second layer of the same suture was used to obtain excellent hemostasis. At this point the uterus is returned to the abdomen. The gutters were cleared of clots and the peritoneal muscles were closed in interrupted fashion using 2-0 chromic suture. The fascia was re-approximated with 0 Vicryl in a running fashion. The subcutaneous layer was closed with 3-0 Vicryl suture and the skin was closed with absorbable nitin called INSORB. The patient tolerated the procedure well. Sponge, lap, needle and instrument counts were correct x2. The patient was then taken to the recovery room in stable condition. The patient delivered a live baby boy at 1710 hours. 's were 9 at 1 minute and 9 at 5 minutes. There was no weight of the baby at this time. The patient was then taken to the recovery room in stable condition.
[2023-01-30] MEDS ORDERED: ENOXAPARIN SODIUM SQ ONE (08:00)
[2023-01-30] MEDS ORDERED: NON-FORMULARY ITEM (Valacyclovir Hcl [Valacyclovir] 500 MG Tablet) PO SCH (10:00)
[2023-01-30] MEDS ORDERED: [UNRECOGNIZED DRUG - REMARK] PO SCH (10:00)
[2023-01-30] MEDS: Trandate 100 MG PO SCH ×2 (10:23→22:03)
[2023-01-30] MEDS: THERAGRAN MULTIVITAMIN PO SCH (10:23)
[2023-01-30] MEDS: TYLENOL EXTRA STRENGTH 500 MG PO PRN ×2 (12:23→19:57)
[2023-01-30] MEDS: Mylicon 80MG PO PRN (14:01)
[2023-01-30] MEDS ORDERED: Adacel Vial IM ONE (15:30)
[2023-01-30 17:16] VITALS: O2SAT 97
[2023-01-31] MEDS: TYLENOL EXTRA STRENGTH 500 MG PO PRN ×3 (01:07→15:41)
[2023-01-31] MEDS: MOTRIN 400 MG PO PRN ×2 (06:52→14:23)
[2023-01-31] MEDS: Docusate Sodium 100 MG PO SCH (09:18)
[2023-01-31] MEDS: Trandate 100 MG PO SCH (09:18)
[2023-01-31] MEDS: THERAGRAN MULTIVITAMIN PO SCH (09:18)
[2023-01-31] MEDS: FERREX 150 PO SCH (09:18)
--- NOTE | 2023-01-31 09:26 | PCM.NOTE ---
Date and Time: 01/31/23924 Subjective Assessment: pod 1 sp csection pt resting and doing well able to ambulate and tolerate diet vss afebrile abd; soft incision c/d/intact uterus; firm lochia; mild hgb; 9.7 a/p sp csection pod 2 dc home today fu office next thursday for incision check OBJECTIVE DATA Vital Signs: Vital Signs - 24 hr Temp Pulse Resp BP Pulse Ox 01/31/23 03:00 98 F 98 H 16 118/57 97 01/30/23 19:58 98.8 F 96 H 20 129/67 97 01/30/23 14:00 97.8 F 100 H 18 100/51 97 01/30/23 10:00 98 Pain Assessment - Last Documented Pain Intensity [Lower] 1 Pain Intensity 4 Pain Scale Used 0-10 Pain Scale Intake and Output: Intake & Output 01/28/23 01/29/23 01/30/23 01/31/23 11:59 11:59 11:59 11:59 Intake Total 3075 5274 2200 Output Total 40 4789 Balance 3035 485 2200 Weight 103.873 kg 103.873 kg Assessment/Plan (1) S/P primary low transverse Current Visit: Yes Status: Acute Code(s): Z98.891 - HISTORY OF UTERINE SCAR FROM PREVIOUS SURGERY (2) Arrest of dilation, delivered, current hospitalization Current Visit: Yes Status: Acute Code(s): O62.1 - SECONDARY UTERINE INERTIA
--- NOTE | 2023-01-31 09:31 | PCM.DS ---
Discharge Summary Date of Admission: 01/29/23 07:47 Admitting Physician: SERGIO NARANJO DO Consults: Consults on Case 01/29/23 17:10 Notify Anesthesia Provider PRN 01/29/23 17:35 Notify Anesthesia Provider PRN 01/29/23 18:59 Navigation ONCE Primary Care Provider: NO FAMILY DOCTOR Allergies Allergies NKA Allergy (Verified 06/08/21 12:07) Hospital Summary - Hospital Course Hospital Course: pt admitted on january 28 at 39 wks gestation for orellana induction and oral cytotec induction. pt had orellana removed on jan 29 and was noted being 4-5cm after removal and pitocin was started after having had her epidural. pt had iupc placed and after adequate uterine contx for 7 hrs had changed her cervix to 6 cm and head was at -3 station. it was discussed with pt the lack of progression and understood to proceed with csection at this time. risks of csection dw pt. pt had subsequently delivered live baby boy via csection on jan 29 and during postop period did well was able to ambulate and tolerate diet. at this time pt stable for discharge. hgb was at 9.7. incision c/d/intact. pt advised to fu in office next thursday for incision check. all questions answered to her satisfaction and declined wanting any narcotic for pain management. pt with hx of chronic htn and was on labetolol 100mg bid and will continue her medication upon discharge along with baby aspirin for 6 wks. - Vitals & Intake/Output Vital Signs: Vital Signs Temperature 98 F 01/31/23 03:00 Pulse Rate 98 H 01/31/23 03:00 Respiratory Rate 16 01/31/23 03:00 Blood Pressure 118/57 01/31/23 03:00 O2 Sat by Pulse Oximetry 97 01/31/23 03:00 Intake & Output: Intake & Output 01/28/23 01/29/23 01/30/23 01/31/23 11:59 11:59 11:59 11:59 Intake Total 3075 5274 2200 Output Total 40 9489 Balance 3035 485 2200 Weight 103.873 kg 103.873 kg - Lab Result Diagrams: 01/30/23 07:40 Micro Results-Entire Visit: Microbiology 01/29/23 09:00 Urine Culture - Final Catherized NO GROWTH - Procedures and Test Procedures and Tests throughout Hospitalization: Therapy Orders & Screens 01/29/23 17:19 Standby STAT Comment: Diagnosis: LABOR Final Diagnosis/Problem List - Final Discharge Diagnosis/Problem (1) S/P primary low transverse Current Visit: Yes Status: Acute Code(s): Z98.891 - HISTORY OF UTERINE SCAR FROM PREVIOUS SURGERY (2) Arrest of dilation, delivered, current hospitalization Current Visit: Yes Status: Acute Code(s): O62.1 - SECONDARY UTERINE INERTIA - Discharge Disposition: Home, Self-Care Condition: Stable Prescriptions: No Action Labetalol HCl 100 mg [Trandate 100 MG] 100 mg PO BID Pnv No.95/Ferrous Fum/Folic AC [ Caplet] 1 tablet PO DAILY Metformin HCl 500 mg [Glucophage 500 MG] 1 tablet PO BID Valacyclovir HCl [Valacyclovir] 500 mg PO DAILY Follow up with: DOCTOR,NO FAMILY [Primary Care Provider] - SERGIO NARANJO DO [ACTIVE STAFF] - 02/06/23
[2023-01-31] MEDS: Mylicon 80MG PO PRN (10:22)
[2023-01-31 11:06] VITALS: RESP 18; TEMP 98.4
[2023-01-31 15:32] VITALS: BP 119/57; PULSE 115
== END 2023-01-31 19:19 | disposition home or self-care (01) | DRG 788 ==
LOC: OB 07:47 → OBSVTOIN 01-29 07:47
PROVIDERS: ADMIT Obstetrics & Gynecology; ATTEND Obstetrics & Gynecology
PROC: 10D00Z1 Extraction of Products of Conception, Low, Open Approach (ICD-10-PCS; principal; 2023-01-29)
DX: O62.1 Secondary uterine inertia (principal); O69.81X0 Labor and delivery complicated by cord around neck, without compression, not applicable or unspecified; Z3A.39 39 weeks gestation of pregnancy; Z37.0 Single live birth; I10 Essential (primary) hypertension; Z20.828 Contact with and (suspected) exposure to other viral communicable diseases
CPT/HCPCS: 36415; 64488; 76937; 80307; 85025; 85610; 85730; 86850; 86900; 86901; 87086; 90471; 90715; 94799; G0378; G0379; J0171; J0290; J0595; J0690; J2175; J2250; J2274; J2405; J2590; J2795; L0625; A9270-GY